=== PATIENT | female | born 1960 | race Caucasian/White ===

== ENCOUNTER 2016-04-30 21:23 | Emergency (ER) | payer OTHER ==
[2016-04-30] MEDS ORDERED: ONDANSETRON 4 MG/2 ML VIAL ONE (21:47)
--- NOTE | 2016-04-30 21:50 | EDPHY ---
H & P Stated Complaint: VOMITING FOR PAST 2 HRS Time Seen by Provider: 04/30/16 21:50 - Personal History Current Tetanus/Diphtheria Vaccine: Yes Current Tetanus Diphtheria and Acellular Pertussis (TDAP): Yes - Medical/Surgical History Hx Asthma: No Hx Chronic Respiratory Disease: No Hx Diabetes: No Hx Cardiac Disease: No Hx Renal Disease: No Hx Cirrhosis: No Hx Alcoholism: No Hx HIV/AIDS: No Hx Splenectomy or Spleen Trauma: No Other PMH: DENIES - Social History Smoking Status: Never smoked Constitutional: Initial Vital Signs Temperature (C) 36.4 C 04/30/16 21:29 Heart Rate 91 04/30/16 21:29 Respiratory Rate 18 04/30/16 21:29 Blood Pressure 109/79 04/30/16 21:29 O2 Sat (%) 93 04/30/16 21:29 O2 Delivery Mode Room Air Allergies/Adverse Reactions: No Known Allergies Allergy (Unverified 04/30/16 21:32) Home Medications: Medication Instructions Recorded Estrovite 04/30/16 Loratadine [Claritin 10 mg] 10 mg PO DAILY 04/30/16 Testosterone [Androderm] 4 each TD DAILY 04/30/16 Medical Decision Making ED Course/Re-evaluation: CHIEF COMPLAINT: Vomiting HISTORY OF PRESENT ILLNESS: The patient is a 55 y/o female complaining of 17 episodes of vomiting onset this evening. She has recently been around a friend with a vomiting illness. She denies abdominal pain, fever, or diarrhea. No pertinent medical history. REVIEW OF SYSTEMS: A 10 point review of systems was performed and is negative with the exception of the elements mentioned in the history of present illness. PHYSICAL EXAM: HR, BP, O2 Sat, RR. Temp noted General Appearance: Alert, well hydrated, appropriate, and non-toxic appearing. Head: Atraumatic without scalp tenderness or obvious injury Eyes: Pupils equal, round, reactive to light and accommodation, EOMI, no trauma , no injection. Ears: Clear bilaterally, no perforation, normal landmarks Nose: Atraumatic, no rhinorrhea, clear. Throat: There is no erythema or exudates, no lesions, normal tonsils, mucus membranes moist. Neck: Supple, 2+ carotid upstroke, nontender, no lymphadenopathy. Respiratory: No retractions, no distress, no wheezes, and no accessory muscle use. Lungs are clear to auscultation bilaterally. Cardiovascular: Regular rate and rhythm, no murmurs, rubs, or gallops. Bilateral carotid, radial, dorsalis pedis, and posterior tibial pulses intact. Good capillary refill all extremities. Gastrointestinal: Abdomen is soft, nontender, non-distended, no masses, no rebound, no guarding, no peritoneal signs. Musculoskeletal: Normal active ROM of all extremities, atraumatic. Neurological: Alert, appropriate, and interactive. The patient has normal DTRs and non-focal cranial nerves, motor, sensory, and cerebellar exam. Skin: No rashes, good turgor, no nodules on palpation. Past medical history: Denies Past surgical history: Denies Family history: Noncontributory Social history: to Dr. Pascual Aguilar, one of our orthopedic surgeons. DIFFERENTIAL DIAGNOSIS: The differential diagnosis for the patient's nausea and vomiting included but was not limited to gastroenteritis, gastritis, appendicitis, and medication side effect. MEDICAL DECISION MAKING: This is a healthy 55 y/o female presenting with a 3-hour history of acute onset vomiting. She reports she has vomited 17 times total tonight. Her abdominal exam is benign and she is afebrile. IV established. Labs drawn including CBC, CHEM. 1L IV NS and 4mg IV Zofran administered. Serially reevaluated patient. She has not vomited since Zofran administration. She is comfortable going home with a Zofran script and referral to PCP if needed. Return precautions given. - Data Points Laboratory Results: Laboratory Results 04/30/16 21:40 04/30/16 21:40 Sodium 141 mEq/L (134-144) Potassium 3.9 mEq/L (3.5-5.2) Chloride 101 mEq/L (97-110) Carbon Dioxide 26 mEq/l (22-31) Anion Gap 14 mEq/L (8-16) BUN 15 mg/dL (7-23) Creatinine 0.7 mg/dL (0.6-1.0) Estimated GFR > 60 Glucose 137 H mg/dL (70-100) Calcium 9.6 mg/dL (8.5-10.4) Medications Given: Discontinued Medications Sodium Chloride (Ns) 1,000 mls @ 0 mls/hr IV ONCE ONE PRN Reason: Wide Open Stop: 04/30/16 21:55 Last Admin: 04/30/16 21:57 Dose: 1,000 mls Sodium Chloride (Ns) 1,000 mls @ 0 mls/hr IV ONCE ONE PRN Reason: Wide Open Stop: 04/30/16 21:56 Last Admin: 04/30/16 21:57 Dose: 1,000 mls Ondansetron HCl (Zofran) 4 mg IVP EDNOW ONE Stop: 04/30/16 21:55 Last Admin: 04/30/16 21:57 Dose: 4 mg Departure - Departure Disposition: Home, Routine, Self-Care Clinical Impression: Gastroenteritis Nausea and vomiting Qualifiers: Vomiting type: unspecified Vomiting Intractability: non-intractable Qualifier Code: (R11.2) Nausea with vomiting, unspecified Condition: Good Instructions: Gastroenteritis (ED), Acute Nausea and Vomiting (ED) Additional Instructions: Take Zofran as prescribed when needed for nausea and vomiting. Follow up with your primary care provider for symptoms not improved in the next 2-3 day. Referrals: Markell Hall MD [Primary Care Provider] - As per Instructions Report Scribed for: Rico العلي Report Scribed by: Ashtyn Wong Date of Report: 04/30/16 Time of Report: 22:53
[2016-04-30] MEDS ORDERED: NS 1,000 ML IV ONE ×2 (21:54→21:55)
[2016-04-30] MEDS ORDERED: ONDANSETRON 4 MG/2 ML VIAL IVP ONE (21:54)
[2016-04-30 22:04] LABS: ANION GAP 14 mEq/L (8-16); CALCIUM 9.6 mg/dL (8.5-10.4); CARBON DIOXIDE 26 mEq/l (22-31); CHLORIDE 101 mEq/L (97-110); CREATININE 0.7 mg/dL (0.6-1.0); GLOMERULAR FILTRATION RATE > 60; GLUCOSE 137 mg/dL (70-100); POTASSIUM 3.9 mEq/L (3.5-5.2); SODIUM 141 mEq/L (134-144)
[2016-04-30] MEDS ORDERED: ONDANSETRON 4MG PREPACK#2 BTL TAKEHOME ONE (23:03)
[2016-04-30 23:23] VITALS: BP 111/51; PULSE 67; RESP 16; TEMP 97.9; O2SAT 96
== END 2016-04-30 23:22 | disposition home or self-care (01) ==
DX: K52.9 Noninfective gastroenteritis and colitis, unspecified (principal)
CPT/HCPCS: 96374; J2405

== ENCOUNTER → 2016-11-16 | Outpatient (CLI) | payer OTHER | LOC: FIMAGING 14:52 | PROVIDERS: ATTEND Obstetrics & Gynecology Gynecology | DX: Z12.31 Encounter for screening mammogram for malignant neoplasm of breast (principal); Z13.820 Encounter for screening for osteoporosis; M85.80 Other specified disorders of bone density and structure, unspecified site | CPT/HCPCS: G0202 ==

== ENCOUNTER → 2018-07-27 | Outpatient (CLI) | payer OTHER | LOC: FIMAGING 15:36 | PROVIDERS: ATTEND Internal Medicine | DX: J32.0 Chronic maxillary sinusitis (principal) ==